=== PATIENT | male | born 1940 | race Caucasian/White ===

== ENCOUNTER 2016-09-19 19:41 | Inpatient (IN) | payer BC ==
--- NOTE | ~2016-09-19 | DS ---
Discharge Summary [facility] [address] [place]. 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 Known history of diverticulitis; hypertension; diabetes; chronically elevated PSA, BPH, prostatitis, sees Dr. Bone as an outpatient; known history of colovesicular fistula; UTI; concern for COPD; sigmoid colectomy for diverticulitis, sees Dr. Morgan; adhesiolysis as an outpatient as well; ventral hernia repair. The patient came in after aerosolizing his hay, got a shortness of breath, headache, increased congestion, mucopurulence from being nonproductive, left earache, soreness, found to have left otitis media, COPD exacerbation, IV Solu-Medrol, DuoNebs, IV Rocephin. The patient's blood cultures, no growth to date. A1c 7.2, which is fairly controlled. Continue outpatient metformin. I am concerned about possible occupational lung disease given aerosolization of his hay, would defer to a lithographic etcher for which I will make him an appointment. Outpatient PFT, low resolution CT of the chest for lung cancer screening as well will be done after he completes therapy with 11 more days of Omnicef, IV Rocephin equivalent for otitis media, and COPD exacerbation anti-inflammatory activity. Will be discharged home. FOLLOWUP: PCP in two weeks, walking O2 test to qualify . Continue COPD outpatient pulmonary followup in four to six weeks. Flonase nasal spray, humidified oxygen, lisinopril 20 p.o. daily, at this time for discharge. DISCHARGE MEDICATIONS: Omnicef 300 p.o. b.i.d. for 11 days, his home dose of lisinopril/HCTZ, metformin 500 p.o. b.i.d., vitamin C, DuoNebs p.r.n., prednisone 30 p.o. daily for four more days, Advair 250/50 one puff b.i.d., consider possible Spiriva as an outpatient. If indeed he does have COPD. We will give him Lortab as he was taking Percocet at home and needs to be educated on 2 g sodium restriction per day for hypertension. CONSULTS: None. Followups as described including outpatient pulmonary function test in four weeks, low- resolution CT chest lung cancer screening in three to four weeks. PROCEDURES: None. DISCHARGE DIAGNOSES: Chronic obstructive pulmonary disease exacerbation, hypertension, otitis media, diabetes, obesity. All questions were answered. It took over 30 minutes to do. Discharge Summary [address] [address] NAME: CLARE PEREIRA : 42 STATUS : DIS IN PAT#: [id number] AGE: 76 ADM/REG DATE : 09/19/16 MR#: [id number] REPORT SERV DATE: 09/22/16 DICTATED BY: YANETH GRULLON DATE: 09/21/16 REPORT STATUS : Draft TRANSCRIBED BY: GUSTAVO DATE: 09/21/16 DICTATED BY: DO SAM Tariq/GUSTAVO Yaneth Grullon DO / [id number] CC: DO Jarrell Tariq M.D.
--- NOTE | ~2016-09-19 | HP ---
History And Physical [id number] [place]. [address] NAME: CLARE PEREIRA : 42 STATUS : ADM IN [facility]#: [id number] AGE: 76 ADM/REG DATE : 09/19/16 MR#: [id number] REPORT SERV DATE: 09/20/16 DICTATED BY: EMANUEL MILLS DATE: 09/20/16 REPORT STATUS : Draft TRANSCRIBED BY: MODL DATE: 09/20/16 DATE OF ADMISSION: 09/19/2016 CHIEF COMPLAINT: A 76-year-old male presenting with shortness of breath and headache. HISTORY OF PRESENTING ILLNESS: The patient's history was obtained through careful interview with the patient, coupled with review of [facility] and [facility] medical records. The patient, for about a week now, has had increasing congestion and shortness of breath characterized by dyspnea on exertion. His cough has been nonproductive. He has had significant sinus drainage though and sinus pressure with a headache that makes his head feel "like a drum." He has left earache as well with soreness, 6/10 severity. The patient has noticed a prominent wheeze. He has had chest discomfort, a tightness through the middle of his chest, 6/10 severity relieved by nebulizer treatments in the emergency department. The patient has felt lightheaded with orthostatic symptoms. No fevers or chills. No nausea or vomiting. No change of bowel or bladder habit. REVIEW OF SYSTEMS: Otherwise, a 14-point review of systems was obtained and was negative. PAST MEDICAL HISTORY: 1. Diverticulitis with surgery. 2. Hypertension, seen by Dr. Jefferson. 3. Diabetes. 4. Chronically elevated PSA with benign prostatic hypertrophy and prostatitis, seen by Dr. Jas Bone. 5. Colovesical fistula. 6. Urinary tract infections. 7. COPD. PAST SURGICAL HISTORY: 1. Ventral hernia repair. 2. Colovesical fistula repair. 3. Sigmoid colectomy for diverticulitis, seen by Dr. Morgan. 4. Adhesiolysis. ALLERGIES: NO KNOWN DRUG ALLERGIES. SOCIAL HISTORY: Quit smoking about 30 years ago. Drinks occasional rare alcohol. Is . in good health. 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 He has children. 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 FAMILY HISTORY: Daughter with Crohn's disease. History And Physical [address] [place]. [address] NAME: CLARE PEREIRA : 42 STATUS : ADM IN PAT#: [id number] AGE: 76 ADM/REG DATE : 09/19/16 MR#: [id number] REPORT SERV DATE: 09/20/16 DICTATED BY: EMANUEL MILLS DATE: 09/20/16 REPORT STATUS : Draft TRANSCRIBED BY: GUSTAVO DATE: 09/20/16 CURRENT MEDICATIONS: Unknown at this time. We have requested pharmacy to obtain medication list for us. PHYSICAL EXAMINATION: VITAL SIGNS: Temperature 97.8, pulse 91, blood pressure 124/73, respiratory rate 20, O2 saturation 88% on room air. GENERAL: A pleasant, cooperative male, in evidence of some distress secondary to shortness of breath and headache. HEENT: Pupils equal, round, and reactive to light. No conjunctival pallor. No scleral icterus. Nares are patent. Oropharynx is clear of obstruction. Moist mucous membranes. NECK: Trachea midline. No thyromegaly. LYMPH: No cervical lymphadenopathy. No supraclavicular lymphadenopathy. RESPIRATORY: The patient has inspiratory and expiratory wheezes. No rhonchi. No rales. Labored respiratory effort. CARDIOVASCULAR: Regular rate and rhythm. No murmurs, rubs, or gallops. No extremity edema is appreciated. ABDOMEN: Soft, nontender, and nondistended. Normal bowel sounds auscultated throughout. No hepatosplenomegaly. DERMATOLOGICAL: Warm and dry extremities. No pallor. No cyanosis. PSYCHIATRIC: Normal affect. Good mood. Alert and oriented x3. Left inner ear exam shows inflamed and swollen eardrum with significant pressure making the eardrum bulge. LABORATORY DATA: White blood cell count 12.5, hemoglobin 14, hematocrit 40, platelets 297. Sodium 141, potassium 4.4, chloride 103, bicarb 31, BUN 13, creatinine 0.15, glucose 122. Liver enzymes within normal limits. ABG demonstrates pH 7.42, a PaCO2 of 41, a PO2 of 59, and bicarb 26. STUDIES: 1. Chest x-ray by my own evaluation shows COPD changes, nothing acute though. 2. EKG by my own evaluation shows sinus rhythm, right bundle-branch block. ASSESSMENT AND PLAN: 1. Hypoxic respiratory failure. Provide supportive care. 2. Chronic obstructive pulmonary disease exacerbation. Place on IV Solu-Medrol, duo nebulizers. 3. Left otitis media. Place on IV antibiotics. 4. Diabetes. Check hemoglobin A1c. Place on sliding scale insulin. CELI/GUSTAVO Emanuel Mills M.D. / [id number] History And Physical [address] [address] NAME: CLARE PEREIRA : 42 STATUS : ADM IN [facility]#: [id number] AGE: 76 ADM/REG DATE : 09/19/16 MR#: [id number] REPORT SERV DATE: 09/20/16 DICTATED BY: EMANUEL MILLS DATE: 09/20/16 REPORT STATUS : Draft TRANSCRIBED BY: GUSTAVO DATE: 09/20/16 CC: MD Jarrell Cruz M.D.
[~2016-09-19 19:41] MED LIST: ACET500CAP PO; ADALAT PO; ADVIL PO; CIP5 PO; GLUCPH PO; LEVAQUIN5T PO; NORCO1 TAB PO; NORV10 PO; OXYCOD PO; PRINZIDE1 TA1 PO; SAW PALMETT2 PO; VITAMIN D PO; VITAMIN D31000 UNIT PO; VITAMIN E PO; VITC500 PO; VITE PO; ZESTORETIC PO
[2016-09-19 21:35] LABS: BASOPHILS 0.3 %; BASOPHILS ABSOLUTE 0.04 10/3/uL (0.0-0.16); EOSINOPHILS 1.1 %; EOSINOPHILS ABSOLUTE 0.14 10/3/uL (0.0-0.53); HEMATOCRIT 40.8 % (40.0-51.0); IMMATURE GRANULOCYTES 0.4 %; IMMATURE GRANULOCYTES ABSOLUTE 0.05 10/3/uL (0.0-0.11); LYMPHOCYTES 36.9 %; LYMPHOCYTES ABSOLUTE 4.62 10/3/uL (0.67-4.30); MANUAL DIFF NO %; MEAN CORPUS HGB CONC 34.3 g/dL (32.0-36.0); MEAN CORPUSCULAR HEMOGLOB 30.7 pg (26.0-34.0); MEAN CORPUSCULAR VOLUME 89.5 fL (80-100); MEAN PLATELET VOLUME 9.1 fL (9.2-13.0); MONOCYTES 9.8 %; MONOCYTES ABSOLUTE 1.23 10/3/uL (0.21-1.20); NEUTROPHILS 51.5 %; NEUTROPHILS ABSOLUTE 6.43 10/3/uL (2.02-8.40); PLATELET COUNT 297 10/3/uL (150-400); RBC DISTRIBUTION WIDTH 13.7 % (12.0-16.0); RED CELL COUNT 4.56 10/6/uL (4.7-6.1); WHITE BLOOD CELLS 12.5 10/3/uL (4.5-10.5)
[2016-09-19 21:51] LABS: A/G RATIO 0.8 (0.7-1.9); ALBUMIN 3.8 G/DL (3.5-5.0); ALKALINE PHOSPHATASE 59 U/L (45-117); BUN (BLOOD UREA NITROGEN) 13 MG/DL (6-23); CALCIUM, SERUM 8.9 MG/DL (8.5-10.4); CHLORIDE, SERUM 103 MMOL/L (96-112); CO2 (CARBON DIOXIDE) 31 MMOL/L (24-34); CREATININE 1.15 MG/DL (0.70-1.30); GFR AFRICAN AMERICAN 72 ML/MIN (>=60); GFR NON AFRICAN AMERICAN 62 ML/MIN (>=60); GLUCOSE, SERUM 122 MG/DL (60-99); POTASSIUM, SERUM 4.4 MMOL/L (3.5-5.3); SGPT(ALT) 23 U/L (5-65); SODIUM, SERUM 141 MMOL/L (135-148); TOTAL BILIRUBIN 0.5 MG/DL (0-1.2); TOTAL PROTEIN 8.8 G/DL (6.0-8.5)
[2016-09-19 21:52] LABS: SGOT(AST) 20 U/L (5-40)
[2016-09-19 22:56] LABS: BE (BASE EXCESS) 1.8 MEQ/L (0 +/- 2.5); CARBOXYHEMOGLOBIN 1.6 % (0-3); HCO3 (ACTUAL BICARBONATE) 26.3 MEQ/L (23-27); HEMOBLOGIN CONTENT 14.1 G/DL (14-18); INSTRUMENT SERIAL # 8087; METHEMOGLOBIN 0.2 % (0-3); O2 CONTENT 17.7 VOL% (18-24); PCO2 (CO2 TENSION) 41 MMHG (35-45); PO2 (O2 TENSION) 60 MMHG (79-93); SAMPLE Arterial; pH 7.43 (7.37-7.43)
[2016-09-20 05:19] LABS: BASOPHILS 0.1 %; BASOPHILS ABSOLUTE 0.01 10/3/uL (0.0-0.16); EOSINOPHILS 0 %; HEMATOCRIT 39.8 % (40.0-51.0); HEMOGLOBIN 13.3 g/dL (13.6-17.8); IMMATURE GRANULOCYTES 0.3 %; IMMATURE GRANULOCYTES ABSOLUTE 0.03 10/3/uL (0.0-0.11); LYMPHOCYTES 14.9 %; LYMPHOCYTES ABSOLUTE 1.55 10/3/uL (0.67-4.30); MEAN CORPUS HGB CONC 33.4 g/dL (32.0-36.0); MEAN CORPUSCULAR HEMOGLOB 29.6 pg (26.0-34.0); MEAN CORPUSCULAR VOLUME 88.4 fL (80-100); MEAN PLATELET VOLUME 9.2 fL (9.2-13.0); MONOCYTES 1.2 %; MONOCYTES ABSOLUTE 0.12 10/3/uL (0.21-1.20); NEUTROPHILS 83.5 %; NEUTROPHILS ABSOLUTE 8.72 10/3/uL (2.02-8.40); PLATELET COUNT 297 10/3/uL (150-400); RBC DISTRIBUTION WIDTH 13.7 % (12.0-16.0); WHITE BLOOD CELLS 10.4 10/3/uL (4.5-10.5)
[2016-09-20 05:20] LABS: MANUAL DIFF NO %
[2016-09-20 05:25] LABS: INTERNATIONAL NORMAL RATI 1.1 UNITS (-); PARTIAL THROMBO TIME 32.8 SEC (22.5-37.2); PROTIME (NOT ORD) 13.8 SEC (12.0-14.5)
[2016-09-20 05:42] LABS: A/G RATIO 0.8 (0.7-1.9); ALBUMIN 3.6 G/DL (3.5-5.0); ALKALINE PHOSPHATASE 56 U/L (45-117); BUN (BLOOD UREA NITROGEN) 16 MG/DL (6-23); CHLORIDE, SERUM 102 MMOL/L (96-112); CO2 (CARBON DIOXIDE) 27 MMOL/L (24-34); CPK 279 U/L (0-200); CREATININE 1.27 MG/DL (0.70-1.30); GFR AFRICAN AMERICAN 64 ML/MIN (>=60); GFR NON AFRICAN AMERICAN 55 ML/MIN (>=60); GLOBULIN 4.5 G/DL (2.5-4.1); POTASSIUM, SERUM 4.2 MMOL/L (3.5-5.3); SGOT(AST) 16 U/L (5-40); SGPT(ALT) 23 U/L (5-65); SODIUM, SERUM 136 MMOL/L (135-148); TOTAL BILIRUBIN 0.4 MG/DL (0-1.2); TOTAL PROTEIN 8.1 G/DL (6.0-8.5); TROPONIN I <0.02 NG/ML (<0.05); ULTRASENSITIVE TSH 0.334 MCIU/ML (0.358-3.740)
[2016-09-20 05:44] LABS: CK-MB 1.3 NG/ML; GLUCOSE, SERUM 303 MG/DL (60-99)
[2016-09-20 05:47] LABS: B NATRIURETIC PEPTIDE (BNP) 11.6 PG/ML (< 100.0)
[2016-09-20 06:35] LABS: PROCALCITONIN <0.05 ng/mL (<0.5)
[2016-09-20 07:20] LABS: GLYCOHEMOGLOBIN (HbA1c) 7.2 % (4.7-6.1)
[2016-09-21 05:46] LABS: BASOPHILS 0.1 %; BASOPHILS ABSOLUTE 0.01 10/3/uL (0.0-0.16); EOSINOPHILS 0.1 %; EOSINOPHILS ABSOLUTE 0.01 10/3/uL (0.0-0.53); HEMATOCRIT 39.3 % (40.0-51.0); HEMOGLOBIN 13.4 g/dL (13.6-17.8); IMMATURE GRANULOCYTES 0.4 %; IMMATURE GRANULOCYTES ABSOLUTE 0.07 10/3/uL (0.0-0.11); LYMPHOCYTES 14.5 %; MEAN CORPUS HGB CONC 34.1 g/dL (32.0-36.0); MEAN CORPUSCULAR HEMOGLOB 30.7 pg (26.0-34.0); MEAN CORPUSCULAR VOLUME 89.9 fL (80-100); MEAN PLATELET VOLUME 9.3 fL (9.2-13.0); MONOCYTES 5.1 %; MONOCYTES ABSOLUTE 0.81 10/3/uL (0.21-1.20); NEUTROPHILS 79.8 %; NEUTROPHILS ABSOLUTE 12.69 10/3/uL (2.02-8.40); PLATELET COUNT 343 10/3/uL (150-400); RBC DISTRIBUTION WIDTH 13.8 % (12.0-16.0); RED CELL COUNT 4.37 10/6/uL (4.7-6.1)
[2016-09-21 05:47] LABS: MANUAL DIFF NO %; WHITE BLOOD CELLS 15.9 10/3/uL (4.5-10.5)
[2016-09-21 06:03] LABS: A/G RATIO 0.8 (0.7-1.9); ALBUMIN 3.7 G/DL (3.5-5.0); ALKALINE PHOSPHATASE 49 U/L (45-117); CALCIUM, SERUM 9.1 MG/DL (8.5-10.4); CHLORIDE, SERUM 103 MMOL/L (96-112); CO2 (CARBON DIOXIDE) 25 MMOL/L (24-34); CREATININE 1.19 MG/DL (0.70-1.30); GFR AFRICAN AMERICAN 69 ML/MIN (>=60); GFR NON AFRICAN AMERICAN 59 ML/MIN (>=60); GLOBULIN 4.6 G/DL (2.5-4.1); POTASSIUM, SERUM 4.2 MMOL/L (3.5-5.3); SGOT(AST) 13 U/L (5-40); SGPT(ALT) 20 U/L (5-65); SODIUM, SERUM 135 MMOL/L (135-148); TOTAL BILIRUBIN 0.3 MG/DL (0-1.2); TOTAL PROTEIN 8.3 G/DL (6.0-8.5)
[2016-09-21 06:05] LABS: BUN (BLOOD UREA NITROGEN) 20 MG/DL (6-23); GLUCOSE, SERUM 170 MG/DL (60-99)
[2016-09-21] MEDS ORDERED: OMNICEF300 PO (13:22)
[2016-09-21] MEDS ORDERED: P10 PO (13:23)
[2016-09-21] MEDS ORDERED: DUONEB INH (13:24)
[2016-09-21] MEDS ORDERED: NORCO1 TA1 PO (13:25)
== END 2016-09-21 14:53 | disposition home or self-care (01) | DRG 189 ==
LOC: ER 19:41 → 5SO 23:49
PROVIDERS: Hospitalist; Internal Medicine Pulmonary Disease; Nurse Practitioner Acute Care
DX: J96.01 Acute respiratory failure with hypoxia (principal); J44.1 Chronic obstructive pulmonary disease with (acute) exacerbation; E11.9 Type 2 diabetes mellitus without complications; H66.92 Otitis media, unspecified, left ear; I10 Essential (primary) hypertension; N40.0 Benign prostatic hyperplasia without lower urinary tract symptoms; Z87.440 Personal history of urinary (tract) infections; Z90.49 Acquired absence of other specified parts of digestive tract; Z98.890 Other specified postprocedural states; Z68.36 Body mass index [BMI] 36.0-36.9, adult; Z79.84 Long term (current) use of oral hypoglycemic drugs
CPT/HCPCS: 36600; 71020; 80053; 82550; 82553; 82805; 82962; 83036; 83735; 83880; 84100; 84145; 84443; 84484; 85025; 85610; 85730; 87040; 87070; 87205; 93005; 94640; 96374; 96375; 99285; A9270-GY; G0378; J2920